=== PATIENT | female | born 1980 | race Caucasian/White ===

== ENCOUNTER → 2018-03-26 13:53 | Outpatient (CLI) | payer OTHER, SELFPAY ==
[2018-03-26 14:44] LABS: Add Manual Diff / Slide Review NO; Basophils Percent Auto 0.7 % (0-2); Eosinophils Percent Auto 0.6 % (2-4); Hematocrit 38.2 % (36-46); Hemoglobin 12.9 g/dL (12.0-16.0); Lymphocytes Percent Auto 14.7 % (25-40); Mean Corpuscular HGB Conc 33.7 % (30-36); Mean Corpuscular Hemoglobin 29.6 PG (26-34); Mean Corpuscular Volume 87.7 fL (80-100); Neutrophils Absolute Auto 7700 /uL (3000-5900); Platelet Count 470 X10^3/uL (150-400); Red Blood Cell Count 4.35 X10^6/uL (4.0-5.2); Red Cell Distribution Width 17.3 % (11.6-14.8)
[2018-03-26 14:50] LABS: Appearance Urine UA CLEAR; Bilirubin Urine UA NEGATIVE (NEGATIVE); Color Urine UA YELLOW; Glucose Urine UA NEGATIVE (Normal); Ketones Urine UA NEGATIVE (NEGATIVE); Leukocyte Esterase Urine UA NEGATIVE (NEGATIVE); Nitrite Urine UA NEGATIVE (NEGATIVE); Occult Blood Urine UA NEGATIVE (Negative); Protein Urine UA NEGATIVE (Negative); Specific Gravity Urine UA 1.025 (1.000-1.035); Urobilinogen Urine UA 0.2 E.U./dL (0.2)
[2018-03-26 15:09] LABS: Bacteria Urine None Seen; RBC Urine 0-1/HPF (0-5/HPF); Squamous Epithelial Cell Urine 1-5 /HPF; WBC Urine 0-1/HPF (0-5/HPF)
[2018-03-26 19:03] LABS: HIV 1 and 2 Antibody NEGATIVE (NEGATIVE); Hep C Virus Ab w/Reflex Quant NEGATIVE s/c (NEGATIVE); Hepatitis B Surface Antigen NEGATIVE s/c (NEGATIVE)
[2018-03-28 14:27] LABS: HSV 2 IGG AB < 0.90 index (< 0.90); HSV1IGG < 0.90 index (< 0.90)
[2018-03-29 12:49] LABS: Rapid Plasma Reagin NON-REACTIVE
== END ==
PROVIDERS: Visit Provider Family Medicine
DX: Z34.01 Encounter for supervision of normal first pregnancy, first trimester (principal); Z3A.01 Less than 8 weeks gestation of pregnancy
CPT/HCPCS: 36415; 80055; 86850; 86900; 86901; 87086

== ENCOUNTER → 2018-03-27 | Outpatient (CLI) | payer OTHER, SELFPAY | LOC: LAB 09:56 | PROVIDERS: Visit Provider Family Medicine | DX: Z34.90 Encounter for supervision of normal pregnancy, unspecified, unspecified trimester (principal) | CPT/HCPCS: 86787 ==

== ENCOUNTER → 2018-04-09 16:09 | Outpatient (CLI) | payer OTHER, SELFPAY ==
[2018-04-09 22:11] LABS: Urine N gonorrhoeae NOT DETECTED
[2018-04-09 22:13] LABS: Urine Chlamydia NOT DETECTED
== END ==
PROVIDERS: Visit Provider Family Medicine
DX: Z11.3 Encounter for screening for infections with a predominantly sexual mode of transmission (principal); Z11.8 Encounter for screening for other infectious and parasitic diseases
CPT/HCPCS: 87491; 87591

== ENCOUNTER → 2018-05-21 12:50 | Outpatient (CLI) | payer OTHER, SELFPAY ==
[2018-06-04 08:43] LABS: Informaseq SEE SEPARATE REPORTS
== END ==
PROVIDERS: Visit Provider Family Medicine
DX: O09.511 Supervision of elderly primigravida, first trimester (principal); Z3A.12 12 weeks gestation of pregnancy
CPT/HCPCS: 36415; 81507

== ENCOUNTER → 2018-07-20 07:10 | Outpatient (CLI) | payer OTHER, SELFPAY ==
--- NOTE | 2018-07-20 07:36 | DI.US.S_ITS ---
PROCEDURE: US OB >= 14 WEEKS FETUS INDICATIONS: ANATOMIC SURVEY OUTSIDE/PRIOR DATING DATA: Last menstrual period (LMP): Unknown. LMP-based estimated date of delivery (SHANELLE): N./A.. First dating scan (date and location): 07/20/18. Estimated date of delivery (SHANELLE) from first dating scan: 11/27/18. TECHNIQUE: Real-time scanning was performed of the fetus, with image documentation and biometric measurements. Endovaginal scanning: No COMPARISON: [facility], , OB >= 14 WEEKS FETUS, 04/23/2018, 10:23. FINDINGS: General: A single living intrauterine gestation is present. Presentation: Transverse. Placenta: Placental position is anterior, which is low lying with the inferior margin 1.0 cm above the internal cervical os.. Amniotic fluid index: 12.1 cm, normal range is 5-24 cm. heart rate: 141 beats per minute. Maternal cervical canal: 3.5 cm long. Normal lower limit is 2.5 cm. biometrics: Biparietal diameter: 20 weeks 3 days Head circumference: 21 weeks 3 days Abdominal circumference: 22 weeks 2 days Femur length: 21 weeks 3 days Estimated gestational age from initial scan: not applicable. Composite gestational age from present scan: 21 weeks 3 days Estimated weight and percentile: 50 g Measurement variability for biometric dating: +/- 7 days from 14 weeks to 15 weeks 6 days gestation, +/- 10 days from 16 weeks to 21 weeks 6 days gestation, +/- 2 weeks from 22 weeks to 27 weeks 6 days gestation, +/- 3 weeks for 28 weeks gestation or later. weight reference: 4500 g or EFW >90/95% is considered macrosomia or large for gestational age. EFW <10% is small for gestational age. EFW 5% or less is considered intra-uterine growth restriction. Anatomic survey: Neuro: Ventricles are non-dilated at less than 10 mm. Cisterna magna is normal at 3-11 mm. Cerebellum is normal in size and morphology. Nuchal skin fold: Normal at less than 6 mm between 14-21 weeks gestational age. Face: Nose and lips, facial profile are normal. Spine: No evidence for spina bifida. Heart: 4-chambered heart is present, with normal ventricular outflow tracts. Diaphragm: Diaphragm is intact. Stomach: Left-sided stomach is present. Kidneys: No hydronephrosis. Normal is less than 5 mm in 2nd trimester, less than 7 mm in 3rd trimester. Cord: 3-vessel cord has orthotopic insertion. Bladder: Normal in size. Extremities: All 4 extremities identified. IMPRESSION: 1. Single living IUP with composite gestational age of 21 weeks 3 days. 2. Normal anatomy. 3. Low lying placenta. Followup recommended. Dictated by: Jay Sumner [facility] Interpreted: Jonny Rae MD on 07/20/2018 at 9:19 Approved by: Jonny Rae M.D. on 07/20/2018 at 13:57
[2018-07-20 08:36] LABS: Add Manual Diff / Slide Review NO; Basophils Percent Auto 1.3 % (0-2); Eosinophils Percent Auto 1.2 % (2-4); Hematocrit 35.8 % (36-46); Hemoglobin 12.1 g/dL (12.0-16.0); Lymphocytes Percent Auto 15.2 % (25-40); Mean Corpuscular HGB Conc 33.7 % (30-36); Mean Corpuscular Hemoglobin 29.4 PG (26-34); Mean Corpuscular Volume 87.1 fL (80-100); Monocytes Percent Auto 4.2 % (3-14); Neutrophils Absolute Auto 8300 /uL (3000-5900); Neutrophils Percent Auto 78.1 % (50-75); Platelet Count 352 X10^3/uL (150-400); Red Cell Distribution Width 17.6 % (11.6-14.8); White Blood Cell Count 10.7 X10^3/uL (4.5-11.0)
[2018-07-20 08:57] LABS: Erythrocyte Sedimentation Rate 59 MM/HR (0-20)
[2018-07-20 09:12] LABS: Alanine Aminotransferase 8 IU/L (9-52); Albumin 3.6 g/dL (3.5-5.0); Alkaline Phosphatase 63 U/L (38-126); Aspartate Aminotransferase 13 IU/L (14-36); BUN Creatinine Ratio 22.5 (6-22); Bilirubin Total 0.3 mg/dL (0.2-1.3); Blood Urea Nitrogen 9 mg/dL (7-17); C-Reactive Protein Quant 1.2 mg/dL (<1.0); Calcium 8.9 mg/dL (8.4-10.2); Carbon Dioxide 23 mmol/L (22-32); Chloride 108 mmol/L (98-107); Estimated Glomerular Filt Rate > 60.0 mL/min (>60); Globulin 3.7 g/dL (1.7-4.1); Glucose 87 mg/dL (70-100); HEMOLYSIS < 15 (0-50); Potassium 4.1 mmol/L (3.4-5.1); Sodium 139 mmol/L (137-145); Total Protein 7.3 g/dL (6.3-8.2)
== END ==
PROVIDERS: Family Provider Internal Medicine Rheumatology; PCP Family Medicine; Visit Provider Family Medicine
DX: O99.89 Other specified diseases and conditions complicating pregnancy, childbirth and the puerperium (principal); M45.9 Ankylosing spondylitis of unspecified sites in spine; Z3A.21 21 weeks gestation of pregnancy
CPT/HCPCS: 36415; 76811; 80053; 85025; 85651; 86140

== ENCOUNTER → 2018-08-16 16:10 | Outpatient (CLI) | payer OTHER, SELFPAY ==
[2018-08-16 18:01] LABS: Hematocrit 36.6 % (36-46); Hemoglobin 12.1 g/dL (12.0-16.0)
[2018-08-16 18:10] LABS: GTT (PREG) 1 Hour PP 50gm Dose 109 mg/dL (76-139)
== END ==
PROVIDERS: Family Provider Internal Medicine Rheumatology; PCP Family Medicine; Visit Provider Family Medicine
DX: Z34.82 Encounter for supervision of other normal pregnancy, second trimester (principal); Z3A.26 26 weeks gestation of pregnancy
CPT/HCPCS: 36415; 82950; 85014; 85018

== ENCOUNTER 2018-10-04 10:25 | Outpatient (CLI) | payer OTHER, SELFPAY | END 2018-10-04 11:22 | disposition home or self-care (01) | LOC: LABOR 10:36 → OB 10-09 08:49 | PROVIDERS: PCP Family Medicine; Visit Provider Family Medicine | DX: Z34.83 Encounter for supervision of other normal pregnancy, third trimester (principal); Z3A.32 32 weeks gestation of pregnancy | CPT/HCPCS: 59025; G0378; G0379 ==

== ENCOUNTER 2018-10-11 08:35 | Outpatient (CLI) | payer OTHER, SELFPAY ==
[2018-10-11] MEDS: CALCIUM CARBONATE 500 MG TAB 1000 MG PO (09:01)
== END 2018-10-11 09:32 | disposition home or self-care (01) ==
LOC: OB 13:17
PROVIDERS: Family Provider Internal Medicine Rheumatology; PCP Family Medicine; Visit Provider Family Medicine
DX: Z34.83 Encounter for supervision of other normal pregnancy, third trimester (principal); Z3A.33 33 weeks gestation of pregnancy
CPT/HCPCS: 59025; G0378; G0379

== ENCOUNTER 2018-10-19 08:35 | Outpatient (CLI) | payer OTHER, SELFPAY | END 2018-10-19 09:31 | disposition home or self-care (01) | LOC: LABOR 08:39 → OB 10-22 14:01 | PROVIDERS: PCP Family Medicine; Visit Provider Family Medicine | DX: Z34.83 Encounter for supervision of other normal pregnancy, third trimester (principal); Z3A.34 34 weeks gestation of pregnancy | CPT/HCPCS: 59025; 87653; G0378; G0379 ==

== ENCOUNTER → 2018-10-19 10:04 | Outpatient (CLI) | payer OTHER, SELFPAY ==
[2018-10-20 13:05] LABS: Strep Grp B PCR NEG for Grp B Strep
== END ==
PROVIDERS: Family Provider Internal Medicine Rheumatology; PCP Family Medicine; Visit Provider Family Medicine
DX: Z34.90 Encounter for supervision of normal pregnancy, unspecified, unspecified trimester (principal)
CPT/HCPCS: 87653

== ENCOUNTER 2018-10-24 08:34 | Outpatient (CLI) | payer OTHER, SELFPAY | END 2018-10-24 09:12 | disposition home or self-care (01) | LOC: OB 10-25 11:06 | PROVIDERS: Family Provider Internal Medicine Rheumatology; PCP Family Medicine; Visit Provider Family Medicine | DX: Z34.83 Encounter for supervision of other normal pregnancy, third trimester (principal); Z3A.36 36 weeks gestation of pregnancy | CPT/HCPCS: 59025; G0378; G0379 ==

== ENCOUNTER 2018-10-31 11:30 | Outpatient (CLI) | payer OTHER, SELFPAY ==
--- NOTE | 2018-10-31 12:18 | PM.OBTRLD ---
Visit Information Visit Information Date of evaluation: 10/31/18 Primary OB Provider: Janusz Santamaria On-call OB Provider: Candi Flowers Reason for Evaluation: Yes non-stress test Comments/Additional reasons for admission: Patient with Crohn's disease, ankylosing spondylitis, at 36 weeks Evaluation Evaluation Baseline heart rate: 120 Variability: Moderate (11-25) monitor accelerations: Present monitor decelerations: Absent Diagnosis, Plan/Disposition Final Diagnosis (1) 36 weeks gestation of : Current Visit: Yes Status: Acute (2) H/O Crohn's disease: Current Visit: No Status: Chronic Plan/Disposition Plan: Reactive nonstress test keep her routine OB appointment.
== END 2018-10-31 12:22 | disposition home or self-care (01) ==
LOC: LABOR 11:45 → OB 11-07 08:34
PROVIDERS: Family Provider Internal Medicine Rheumatology; PCP Family Medicine; Visit Provider Family Medicine
DX: Z34.03 Encounter for supervision of normal first pregnancy, third trimester (principal); Z3A.36 36 weeks gestation of pregnancy
CPT/HCPCS: 59025; G0378; G0379

== ENCOUNTER 2018-11-09 08:54 | Outpatient (CLI) | payer OTHER, SELFPAY | END 2018-11-09 09:41 | disposition home or self-care (01) | LOC: LABOR 09:29 → OB 11:28 | PROVIDERS: PCP Family Medicine; Visit Provider Family Medicine | DX: Z34.03 Encounter for supervision of normal first pregnancy, third trimester (principal); Z3A.37 37 weeks gestation of pregnancy | CPT/HCPCS: 59025; G0378; G0379 ==

== ENCOUNTER 2018-11-12 21:54 | Inpatient (IN) | payer OTHER, SELFPAY ==
[2018-11-12 22:24] VITALS: BP 122/79
[2018-11-12] MEDS: LACTATED RINGERS 1,000 ML 100 ML IV (23:00)
--- NOTE | 2018-11-12 23:08 | P.HP_ITS ---
History of Present Illness Date Patient Seen: 11/12/18 Time Patient Seen: 23:00 Chief complaint: Narrative: Patient is a G2 para 1 at 38 weeks gestational age with an estimated due date of November 27, 2018 consistent with initial examination and early ultrasound. The patient states this evening she was sitting on the couch with her partner. She also and felt leaking of fluid. He thought she had an accident went to the bathroom and the fluid kept leaking. At that point she knew her water broke. She lives on [facility] they were able to get the [place] over and they proceeded to the labor and delivery floor. On arrival to the labor and delivery for she was kath every 2-3 minutes. She was found to be grossly ruptured. heart tones of the baby were 140. Which were reactive. She was dilated to 2 cm. Over the last 48 hr patient states she was feeling well without any difficulties. She has had no fevers no chills no headache. Patient states she has had good movement. Patient is history she began care at 6 weeks and had routine follow-up. She had a total weight gain of approximately 30 lb. She has a health history consistent with Crohn's disease ankylosing spondylitis she is a smoker and uses marijuana and has anxiety. Her medications include vitamins Flexeril hydroxyzine and symptoms for treatment of her ankylosing spondylitis and Crohn's disease which were both quiescent during the . During the last 6 weeks of she had weekly NSTs and doctor's appointments. Baby had good growth during the . labs show blood type AB-positive antibody screen negative hemoglobin 38.2 and 12.9 platelet count 470 VDRL nonreactive urine culture negative hepatitis B surface antigen negative HIV negative chlamydia negative gonorrhea negative rubella immune hepatitis C negative HSV 1 and HSV 2-varicella immune genetic screen test was negative. Diabetes screen was 109. GBS test was negative. Past medical history includes allergies to latex and blue cheese history of migraine headaches Crohn's disease urinary tract infection ankle closing spondylitis. Past surgical history hemorrhoidectomy. Past infectious gynecological history history of chlamydia previously treated. She also smokes marijuana and CBD. Used alcohol in the beginning the until she found out she was . Meds Home Medications Medication Instructions Recorded Confirmed Type etanercept 50 mg/mL (0.98 mL) 50 mg SUBCUT QWEEK 03/26/18 03/26/18 History subcutaneous syringe cyclobenzaprine 10 mg tablet 10 mg PO TID PRN #30 tab 04/23/18 Rx clotrimazole 2 % vaginal cream 1 applicator VAG BEDTIME #21 gram 05/21/18 Rx hydroxyzine HCl 25 mg tablet 25 mg PO Q8H PRN #30 tab 05/21/18 Rx Allergies Allergy/AdvReac Type Severity Reaction Status Date / Time No Known Drug Allergies Allergy Unverified 03/26/18 13:22 Exam Narrative Exam Narrative: . General: Alert no apparent distress. Affect is appropriate. Kath it is uncomfortable. HEENT: Neck is supple without lymphadenopathy pupils equal round and reactive. Cardio: S1-S2 regular rate and rhythm. Respiratory: Lungs clear to auscultation. Abdomen: Gravid. Extremities: Normal deep tendon reflexes trace edema. [place]: Kath every 3-5 minutes 60-90 2nd contraction heart tones: heart tone category 1 average heart rate 135 Assessment & Plan Plan: Assessment/Plan Narrative: 37-year-old G2 para 0 at 38 weeks gestational age with spontaneous rupture of membrane with active labor. heart tracings were category 1. is complicated by Crohn's disease which is not active ankylosing spondylitis cigarette smoking and CBD use. Patient from the beginning of his desired due to her ankylosing spondylitis and chronic pain in her back due to this. She presents in labor and ruptured. Would like to proceed with a . procedure was discussed with her and her partner. Risk benefits and alternative 2 C sections surgery were discussed with patient in partner. Written informed and verbal consent were obtained for the C- section. Preoperative orders were written for patient will have a CBC and platelet count blood type she will be given antibiotics on-call to the OR step OT 10 2 g IV. She will meet with anesthesia. And we will go ahead and proceed with a operation as patient has requested.
[2018-11-12 23:13] LABS: Add Manual Diff / Slide Review NO; Basophils Percent Auto 0.5 % (0-2); Eosinophils Percent Auto 0.7 % (2-4); Hematocrit 39.9 % (36-46); Hemoglobin 13.8 g/dL (12.0-16.0); Lymphocytes Percent Auto 15.1 % (25-40); Mean Corpuscular HGB Conc 34.5 % (30-36); Mean Corpuscular Hemoglobin 30.8 PG (26-34); Mean Corpuscular Volume 89.3 fL (80-100); Monocytes Percent Auto 3.7 % (3-14); Neutrophils Absolute Auto 9800 /uL (1500-7000); Platelet Count 375 X10^3/uL (150-400); Red Blood Cell Count 4.47 X10^6/uL (4.0-5.2); Red Cell Distribution Width 15.6 % (11.6-14.8); White Blood Cell Count 12.3 X10^3/uL (4.5-11.0)
[2018-11-12] MEDS: CEFOTETAN 2 GM/50 ML PIGGYBACK IV (23:25)
[2018-11-13] VITALS (7 sets, daily range): BP systolic 130–134; BP diastolic 88–95; PULSE 94–102; RESP 9–17; TEMP 36.8–37.1; O2SAT 93–94
--- NOTE | 2018-11-13 00:07 | SUR.OPER ---
Supine on Padded OR bed, head on pillow, safety belt at thigh, arms secured on padded arm boards at <90 degrees abduction. Bump under right buttock. Legs uncrossed with pillow under knees, gel pad to heels, tape over blanket to lower legs.
[2018-11-13] MEDS: LACTATED RINGERS 1,000 ML 100 ML IV (00:19)
[2018-11-13] MEDS: ACETAMINOPHEN IV 1,000 MG/100 ML VIAL 400 MG IV (00:22)
--- NOTE | 2018-11-13 00:36 | P.OP_ITS ---
Operative Date/Time/Diagnoses Date of procedure: 11/13/18 Time of procedure: 00:32 Procedure & Clinicians Procedure: Procedure: Lower segment transverse section Consent: Verbal and written informed consent were obtained from the patient placed on the chart. Indications: 37-year-old G2 para 1 at 38 weeks with spontaneous rupture of membranes desiring Findings: [Normal uterus normal ovaries] Normal female infant Apgars 8 and 9 Anesthesia: General after failed spinal due to ankylosing spondylitis Surgeon: [Dr. Janusz Santamaria] Radiation Control Specialist: [Dr. Bryan Underwood] Estimated blood loss: [500 mL] Drains: Maciel to gravity. IV fluids: 2 L lactated Ringer's Description of procedure: The patient was brought to the operating room patient had multiple temps at spinal anesthesia but due to patient's ankylosing spondylitis patient require general anesthesia. After preparation, and Maciel had been performed. The abdomen was prepped a lower abdominal Pfannenstiel incision was made with first with a knife and cared down to the fascia with a second knife. The fascia was incised in the midline and extended laterally with a knife. Bleeding points were clamped with hemostats and Bovie coagulated. The rectus muscles were by blunt dissection. The rectus muscles were divided in the midline and the peritoneum was grasped with hemostats and carefully entered with Cherry scissors. The incision was extended bilaterally. The bladder blade was then placed. The vesicoperitoneum was grasped with smooth pickups, entered with Metzenbaum scissors, and extended laterally. The bladder flap was created by gently blunt dissection and placed behind the bladder blade. The lower uterine segment was noted to be thin was carefully incised with the scalpel and extended laterally with the fingers. A live was found to be in the vertex position. The head was then easily elevated with the hand. The baby was then suctioned and cried immediately, and was handed to the waiting attendant. The placenta was delivered manually. The uterus was explored with a wet lap sponge and found to be clear membranes. The first layer of the uterine closure was with running locking #1 chromic catgut suture. The second layer with an imbricating #1 chromic catgut suture. Hemostasis was carefully checked and found to be satisfactory. The bladder flap was closed with a running 2-0 chromic catgut suture. The fallopian tubes and ovaries were inspected and to be found normal bilaterally. After sponge and needle counts were found to be correct the peritoneum was closed with 2-0 chromic catgut suture. Rectus muscles were approximated in the midline. The fascia was closed with a 2 running 0 Vicryl from lateral to midline. The subcutaneous tissue was approximated with interrupted 2.0 plain gut. Bleeding points were Bovie and coagulated. The skin was closed with 1-0 running subcuticular stitch. Urinary output was adequate and normal patient left to the recovery room in good condition.
--- NOTE | 2018-11-13 00:36 | SUR.OPER ---
VIABLE FEMALE INFANT DELIVERED AT 2356. PLACENTA AND CORD BLOOD TO OB WITH RN
[2018-11-13] MEDS: HYDROMORPHONE 2 MG INJ 0.5 MG IV ×2 (00:46→00:51)
[2018-11-13] MEDS: HYDROMORPHONE 2 MG INJ 1 MG IV (01:02)
--- NOTE | 2018-11-13 01:10 | SUR.PHASEI ---
Report given to Marielena
--- NOTE | 2018-11-13 01:26 | SUR.PHASEI ---
Pt intermittently teary, c/o anxiety, pt reassured easily. Expressed desire to see daughter. Pt transferred to the center. VS checked. IV saline locked. Two small spots of shadow drainage to sesar kwon. Fundus and perineum checked with RN. Report given to Marielena.
[2018-11-13] MEDS: LACTATED RINGERS 1,000 ML 125 ML IV (01:52)
[2018-11-13] MEDS: HYDROMORPHONE PCA 6 MG/30 ML PCA.VIAL IV (02:30)
--- NOTE | 2018-11-13 07:32 | PM.PN.1 ---
Subjective Date Patient Seen: 11/13/18 Time Patient Seen: 07:51 Interval history: Patient seen and evaluated postoperative day 1. For primary due to medical complication during of ankylosing spondylitis and Crohn's disease. Patient had general anesthesia during the due to inability to obtain spinal anesthesia due to ankylosing spondylitis of the spine. Patient had a good night last night. Her vital signs have been stable. She is receiving SPECIAL NEEDS NANNY for pain medication she has still has a Maciel catheter in and SCDs on. She states she is anticipating eating today and getting up and moving. Patient has a history of anxiety and required a little bit of Vistaril for anxiousness. Exam Vital Signs (past 8 hours): - 11/13/18 00:38 11/13/18 00:43 11/13/18 00:48 Temperature 98.2 F Pulse Rate 102 H 94 H 97 H Respiratory Rate 16 9 L 17 Blood Pressure 130/95 H 133/92 H 134/88 Pulse Oximetry 93 94 93 11/13/18 00:53 11/13/18 01:03 11/13/18 02:30 Temperature 98.4 F Pulse Rate 99 H 95 H Respiratory Rate 16 12 Blood Pressure 134/91 H 131/88 Pulse Oximetry 93 94 Oxygen Delivery Method Room Air Narrative Exam Narrative: General: Alert no apparent distress. Affect is appropriate. Maria Teresa it is uncomfortable. HEENT: Neck is supple without lymphadenopathy pupils equal round and reactive. Cardio: S1-S2 regular rate and rhythm. Respiratory: Lungs clear to auscultation. Abdomen: Uterus firm. Incision clean dry and intact. Extremities: Normal deep tendon reflexes trace edema. Objective Labs Result Diagrams: 11/12/18 22:30 Labs: Laboratory Results - last 24 hr 11/12/18 11/12/18 22:30 22:30 WBC 12.3 H RBC 4.47 Hgb 13.8 Hct 39.9 MCV 89.3 MCH 30.8 MCHC 34.5 RDW 15.6 H Plt Count 375 Neut % (Auto) 80.0 H Lymph % (Auto) 15.1 L [place] % (Auto) 3.7 Eos % (Auto) 0.7 L Baso % (Auto) 0.5 Neut # (Auto) 9800 H Blood Type AB Positive Antibody Screen Negative Assessment & Plan Plan: Assessment/Plan Narrative: Postop day 1. Primary elective due to medical reasons during due to chronic back pain from ankylosing spondylitis Crohn's disease. Mom's doing well this morning. Will re-evaluate her hemoglobin and hematocrit. Later today as her pain is better controlled we will convert her from a SPECIAL NEEDS NANNY to oral pain medication. Her Maciel catheter will be DC. She will get up and eat a regular diet. Will work on ambulation to the bathroom. Mild anxiety after the . Continue with Vistaril as needed. May consider transferring to a long-term SSRI during the period. Wants a ParaGard IUD for prevention
--- NOTE | 2018-11-13 07:35 | P.PN_ITS ---
Subjective Date Patient Seen: 11/13/18 Time Patient Seen: 07:51 Interval history: Patient seen and evaluated postoperative day 1. For C- section primary due to medical complication during of ankylosing spondylitis and Crohn's disease. Patient had general anesthesia during the C- section due to inability to obtain spinal anesthesia due to ankylosing spondylitis of the spine. Patient had a good night last night. Her vital signs have been stable. She is receiving [facility] [employer] [facility] [facility] for pain medication she has still has a Maciel catheter in and SCDs on. She states she is anticipating eating today and getting up and moving. Patient has a history of anxiety and required a little bit of Vistaril for anxiousness. Exam Vital Signs (past 8 hours): - 11/13/18 00:38 11/13/18 00:43 11/13/18 00:48 Temperature 98.2 F Pulse Rate 102 H 94 H 97 H Respiratory Rate 16 9 L 17 Blood Pressure 130/95 H 133/92 H 134/88 Pulse Oximetry 93 94 93 11/13/18 00:53 11/13/18 01:03 11/13/18 02:30 Temperature 98.4 F Pulse Rate 99 H 95 H Respiratory Rate 16 12 Blood Pressure 134/91 H 131/88 Pulse Oximetry 93 94 Oxygen Delivery Method Room Air Narrative Exam Narrative: General: Alert no apparent distress. Affect is appropriate. Maria Teresa it is uncomfortable. HEENT: Neck is supple without lymphadenopathy pupils equal round and reactive. Cardio: S1-S2 regular rate and rhythm. Respiratory: Lungs clear to auscultation. Abdomen: Uterus firm. Incision clean dry and intact. Extremities: Normal deep tendon reflexes trace edema. Objective Labs Result Diagrams: 11/12/18 22:30 Labs: Laboratory Results - last 24 hr 11/12/18 11/12/18 22:30 22:30 WBC 12.3 H RBC 4.47 Hgb 13.8 Hct 39.9 MCV 89.3 MCH 30.8 MCHC 34.5 RDW 15.6 H Plt Count 375 Neut % (Auto) 80.0 H Lymph % (Auto) 15.1 L [place] % (Auto) 3.7 Eos % (Auto) 0.7 L Baso % (Auto) 0.5 Neut # (Auto) 9800 H Blood Type AB Positive Antibody Screen Negative Assessment & Plan Plan: Assessment/Plan Narrative: Postop day 1. Primary elective due to medical reasons during due to chronic back pain from ankylosing spondylitis Crohn's disease. Mom's doing well this morning. Will re-evaluate her hemoglobin and hematocrit. Later today as her pain is better controlled we will convert her from a [facility] [employer] [facility] [facility] to oral pain medication. Her Maciel catheter will be DC. She will get up and eat a regular diet. Will work on ambulation to the bathroom. Mild anxiety after the . Continue with Vistaril as needed. May consider transferring to a long-term SSRI during the period. Wants a ParaGard IUD for prevention
[2018-11-13] MEDS: NICOTINE 7 MG PATCH TOP (07:41)
[2018-11-13] MEDS: KETOROLAC 30 MG/ML VIAL IV ×3 (08:43→21:34)
[2018-11-13] MEDS: OXYCODONE/ACETAMINOPHEN 5/325 TABLET 2 TAB PO ×2 (09:09→13:11)
[2018-11-13] MEDS: OXYCODONE/ACETAMINOPHEN 5/325 TABLET 1 TAB PO (21:43)
[2018-11-14] MEDS: OXYCODONE/ACETAMINOPHEN 5/325 TABLET 1 TAB PO ×4 (02:08→17:01)
[2018-11-14] MEDS: LANOLIN OINT 7 GM 1 APPLIC TOP (02:09)
[2018-11-14] MEDS: IBUPROFEN 600 MG TABLET PO ×4 (04:18→23:31)
--- NOTE | 2018-11-14 07:38 | PM.PN.1 ---
Subjective Date Patient Seen: 11/14/18 Time Patient Seen: 07:38 Interval history: Patient seen had a good day yesterday. Maciel was removed SCDs removed IV fluid was stopped. She is on oral pain medication. Tolerating her diet well. Ambulating with a little bit of assistance. Hemoglobin and hematocrit is pending this morning. No difficulty with urination. No bowel movement. Bleeding has been as anticipated. No significant lower extremity edema. Vital signs are stable. Temperature is stable. Incision is clean and dry. Exam Vital Signs (past 8 hours): Oxygen Delivery Method Room Air Narrative Exam Narrative: General: Alert no apparent distress. Affect is appropriate. Maria Teresa it is uncomfortable. HEENT: Neck is supple without lymphadenopathy pupils equal round and reactive. Cardio: S1-S2 regular rate and rhythm. Respiratory: Lungs clear to auscultation. Abdomen: Uterus firm. Incision clean dry and intact. Extremities: Normal deep tendon reflexes trace edema. Objective Labs Result Diagrams: 11/12/18 22:30 Assessment & Plan Plan: Assessment/Plan Narrative: day 2. They want to stay 1 more day which I think is reasonable. Check hemoglobin hematocrit today. Continue with breast-feeding. Advancing diet. Ambulation work on breast-feeding. Smoker and . Reviewed medication. It is okay for the patch it is okay for Wellbutrin not for sure intact and will talk to her about this. Her Complicated medical history with Crohn's disease and ankylosing spondylitis and is stable she is on immune suppressants.
[2018-11-14] MEDS: NICOTINE 7 MG PATCH TOP (08:49)
[2018-11-14 09:08] LABS: Add Manual Diff / Slide Review NO; Basophils Percent Auto 0.3 % (0-2); Eosinophils Percent Auto 0.4 % (2-4); Hematocrit 31.6 % (36-46); Hemoglobin 10.7 g/dL (12.0-16.0); Lymphocytes Percent Auto 15.2 % (25-40); Mean Corpuscular HGB Conc 33.8 % (30-36); Mean Corpuscular Hemoglobin 30.9 PG (26-34); Mean Corpuscular Volume 91.4 fL (80-100); Monocytes Percent Auto 4.8 % (3-14); Neutrophils Absolute Auto 8500 /uL (1500-7000); Neutrophils Percent Auto 79.3 % (50-75); Platelet Count 304 X10^3/uL (150-400); Red Blood Cell Count 3.46 X10^6/uL (4.0-5.2); Red Cell Distribution Width 15.8 % (11.6-14.8); White Blood Cell Count 10.7 X10^3/uL (4.5-11.0)
[2018-11-14] MEDS: OXYCODONE/ACETAMINOPHEN 5/325 TABLET 2 TAB PO (21:02)
--- NOTE | 2018-11-15 06:17 | PM.DS.1 ---
History of Present Illness Chief complaint: labor & delivery Narrative: Patient is a G2 para 1 at 38 weeks gestational age with an estimated due date of November 27, 2018 consistent with initial examination and early ultrasound. The patient states this evening she was sitting on the couch with her partner. She also and felt leaking of fluid. He thought she had an accident went to the bathroom and the fluid kept leaking. At that point she knew her water broke. She lives on [facility] they were able to get the [place] over and they proceeded to the labor and delivery floor. On arrival to the labor and delivery for she was kath every 2-3 minutes. She was found to be grossly ruptured. heart tones of the baby were 140. Which were reactive. She was dilated to 2 cm. Over the last 48 hr patient states she was feeling well without any difficulties. She has had no fevers no chills no headache. Patient states she has had good movement. Patient is history she began care at 6 weeks and had routine follow-up. She had a total weight gain of approximately 30 lb. She has a health history consistent with Crohn's disease ankylosing spondylitis she is a smoker and uses marijuana and has anxiety. Her medications include vitamins Flexeril hydroxyzine and symptoms for treatment of her ankylosing spondylitis and Crohn's disease which were both quiescent during the . During the last 6 weeks of she had weekly NSTs and doctor's appointments. Baby had good growth during the . labs show blood type AB-positive antibody screen negative hemoglobin 38.2 and 12.9 platelet count 470 VDRL nonreactive urine culture negative hepatitis B surface antigen negative HIV negative chlamydia negative gonorrhea negative rubella immune hepatitis C negative HSV 1 and HSV 2-varicella immune genetic screen test was negative. Diabetes screen was 109. GBS test was negative. Past medical history includes allergies to latex and blue cheese history of migraine headaches Crohn's disease urinary tract infection ankle closing spondylitis. Past surgical history hemorrhoidectomy. Past infectious gynecological history history of chlamydia previously treated. She also smokes marijuana and CBD. Used alcohol in the beginning the until she found out she was . Discharge Providers Date of admission: 11/12/18 21:54 Primary care physician: Janusz Santamaria MD Consults: 11/13/18 00:28 Consult to [employer] Spr[employer] Supervisor Routine Comment: Discharge provider: Janusz Santamaria MD Discharge Date: 11/15/18 Summary Discharge Diagnosis: 37-year-old G2 para 1 at 38 weeks gestational age with delivery of viable female via Routine postoperative care Crohn's disease Ankylosing spondylitis Smoker Exam Vital Signs (past 8 hours): Oxygen Delivery Method Room Air Narrative Exam Narrative: General: Alert no apparent distress. Affect is appropriate. Kath it is uncomfortable. HEENT: Neck is supple without lymphadenopathy pupils equal round and reactive. Cardio: S1-S2 regular rate and rhythm. Respiratory: Lungs clear to auscultation. Abdomen: Uterus firm. Incision clean dry and intact. Extremities: Normal deep tendon reflexes trace edema. Objective Labs Result Diagrams: 11/14/18 08:15 Labs: Laboratory Results - last 24 hr 11/14/18 08:15 WBC 10.7 RBC 3.46 L Hgb 10.7 L Hct 31.6 L MCV 91.4 MCH 30.9 MCHC 33.8 RDW 15.8 H Plt Count 304 Neut % (Auto) 79.3 H Lymph % (Auto) 15.2 L [place] % (Auto) 4.8 Eos % (Auto) 0.4 L Baso % (Auto) 0.3 Neut # (Auto) 8500 H Discharge Plan Discharge Plan Patient Disposition: Home Discharge Med Rec/Prescriptions Prescriptions: New oxycodone-acetaminophen 5-325 mg Tablet 2 tab PO 3-4XD PRN (Reason: pain) Qty: 40 RF: 0 docusate sodium 250 mg Capsule 250 mg PO DAILY PRN (Reason: const) Qty: 0 RF: 0 ibuprofen 600 mg Tablet 600 mg PO Q6HR PRN (Reason: As Needed For Fever/Mild Pain) Qty: 0 RF: 0 nicotine 7 mg/24 hr Patch 24 Hour 7 mg Topical DAILY Qty: 0 RF: 0 Continue certolizumab pegol [Cimzia] 400 mg/2 mL (200 mg/mL x 2) Syringe Kit 400 mg SUBCUT Q4W RF: 0 1 tab tablet 1 tab PO DAILY RF: 0 Follow up/Referrals: Janusz Santamaria MD [Primary Care Provider] - 3-5 Days (November 19, Monday, with Dr. Santamaria at 8:45am) Discharge Data Primary Care Provider: Janusz Santamaria Attending Provider: Janusz Santamaria Admit Date/Time: 11/12/18 21:54
[2018-11-15] MEDS: OXYCODONE/ACETAMINOPHEN 5/325 TABLET 2 TAB PO (06:54)
[2018-11-15] MEDS: IBUPROFEN 600 MG TABLET PO (06:55)
[2018-11-15 07:14] VITALS: BP 131/88; PULSE 95; RESP 12; TEMP 37.1
[2018-11-15 07:50] VITALS: BP 124/80; PULSE 85; RESP 16; TEMP 36.8
== END 2018-11-15 10:40 | disposition home or self-care (01) | DRG 788 ==
PROVIDERS: Admitting Provider Family Medicine; Family Provider Internal Medicine Rheumatology; PCP Family Medicine; Visit Provider Family Medicine
PROC: 10D00Z1 Extraction of Products of Conception, Low, Open Approach (ICD-10-PCS; CPT 59514; principal; 2018-11-12 23:55)
DX: O75.82 Onset (spontaneous) of labor after 37 completed weeks of gestation but before 39 completed weeks gestation, with delivery by (planned) cesarean section (principal); O99.334 Smoking (tobacco) complicating childbirth; F17.210 Nicotine dependence, cigarettes, uncomplicated; Z3A.38 38 weeks gestation of pregnancy; Z37.0 Single live birth; M45.9 Ankylosing spondylitis of unspecified sites in spine
CPT/HCPCS: 36415; 59025; 59050; 59510; 59514; 85025; 86850; 86900; 86901; 96360; G0379; J0131; J0330; J1170; J1885; J2274; J2405; J2704; J2765; J3010

== ENCOUNTER → 2021-12-29 08:29 | Outpatient (CLI) | payer OTHER, SELFPAY ==
[2021-12-29 18:46] LABS: Add Manual Diff / Slide Review NO; Basophils Absolute Auto 100 /uL (0-100); Basophils Percent Auto 1.1 % (0-2); Eosinophils Absolute Auto 100 /uL (0-450); Eosinophils Percent Auto 1.3 % (2-4); Hematocrit 37.6 % (36-46); Hemoglobin 12.5 g/dL (12.0-16.0); Lymphocytes Absolute Auto 2700 /uL (1100-4500); Lymphocytes Percent Auto 32.1 % (25-40); Mean Corpuscular HGB Conc 33.3 % (30-36); Mean Corpuscular Hemoglobin 28.6 PG (26-34); Mean Corpuscular Volume 85.9 fL (80-100); Monocytes Absolute Auto 600 /uL (0-900); Monocytes Percent Auto 6.7 % (3-14); Neutrophils Absolute Auto 4900 /uL (1500-7000); Neutrophils Percent Auto 58.8 % (50-75); Platelet Count 441 X10^3/uL (150-400); Red Blood Cell Count 4.38 X10^6/uL (4.0-5.2); Red Cell Distribution Width 14.3 % (11.6-14.8); White Blood Cell Count 8.3 X10^3/uL (4.5-11.0)
[2021-12-29 18:57] LABS: Alanine Aminotransferase 10 IU/L (<35); Albumin 4.4 g/dL (3.5-5.0); Albumin Globulin Ratio 1.2 (1.0-2.8); Alkaline Phosphatase 80 U/L (38-126); Aspartate Aminotransferase 21 IU/L (14-36); BUN Creatinine Ratio 18.9 (6-22); Bilirubin Total 0.6 mg/dL (0.2-1.3); Blood Urea Nitrogen 10 mg/dL (7-17); Calcium 9.6 mg/dL (8.4-10.2); Carbon Dioxide 30 mmol/L (22-32); Chloride 101 mmol/L (98-107); Cholesterol 233 mg/dL (140-199); Estimated Glomerular Filt Rate > 60.0 mL/min (>60); Globulin 3.8 g/dL (1.7-4.1); Glucose 95 mg/dL (70-100); HDL Cholesterol 84 mg/dL (40-60); HEMOLYSIS < 15 (0-50); LDL Cholesterol Calculated 123 mg/dL (<100); Potassium 4.2 mmol/L (3.4-5.1); Sodium 135 mmol/L (137-145); Total Protein 8.2 g/dL (6.3-8.2); Triglycerides 132 mg/dL (35-150)
[2021-12-29 19:35] LABS: TSH w/ Reflex to FT4 2.56 uIU/mL (0.47-4.68)
== END ==
PROVIDERS: Family Provider Internal Medicine Rheumatology; PCP Physician Assistant Medical; Visit Provider Physician Assistant
DX: I10 Essential (primary) hypertension (principal)
CPT/HCPCS: 80053; 80061; 84443; 85025

== ENCOUNTER → 2022-03-14 08:35 | Outpatient (CLI) | payer OTHER, SELFPAY ==
[2022-03-14 19:16] LABS: Add Manual Diff / Slide Review NO; Basophils Absolute Auto 100 /uL (0-100); Basophils Percent Auto 0.8 % (0-2); Eosinophils Absolute Auto 100 /uL (0-450); Hematocrit 37.1 % (36-46); Hemoglobin 11.9 g/dL (12.0-16.0); Lymphocytes Absolute Auto 2100 /uL (1100-4500); Lymphocytes Percent Auto 28.6 % (25-40); Mean Corpuscular Hemoglobin 26.6 PG (26-34); Monocytes Absolute Auto 400 /uL (0-900); Monocytes Percent Auto 5.6 % (3-14); Neutrophils Absolute Auto 4800 /uL (1500-7000); Platelet Count 455 X10^3/uL (150-400); Red Blood Cell Count 4.47 X10^6/uL (4.0-5.2); Red Cell Distribution Width 16.3 % (11.6-14.8); White Blood Cell Count 7.5 X10^3/uL (4.5-11.0)
[2022-03-14 19:34] LABS: Alanine Aminotransferase 10 IU/L (<35); Albumin 4.8 g/dL (3.5-5.0); Albumin Globulin Ratio 1.3 (1.0-2.8); Alkaline Phosphatase 81 U/L (38-126); Aspartate Aminotransferase 21 IU/L (14-36); Bilirubin Total 0.4 mg/dL (0.2-1.3); Blood Urea Nitrogen 9 mg/dL (7-17); C-Reactive Protein Quant < 0.5 mg/dL (<1.0); Calcium 9.5 mg/dL (8.4-10.2); Carbon Dioxide 24 mmol/L (22-32); Chloride 103 mmol/L (98-107); Estimated Glomerular Filt Rate > 60 mL/min (>60); Globulin 3.7 g/dL (1.7-4.1); Glucose 90 mg/dL (70-100); HEMOLYSIS < 15 (0-50); Potassium 4.3 mmol/L (3.4-5.1); Sodium 137 mmol/L (137-145); Total Protein 8.5 g/dL (6.3-8.2)
[2022-03-14 20:17] LABS: Erythrocyte Sedimentation Rate 37 MM/HR (0-20)
[2022-03-16 14:11] LABS: QuantiFERON Mitogen Value >10.00 IU/mL (.); QuantiFERON TB Gold Plus Negative (Negative)
== END ==
PROVIDERS: Family Provider Internal Medicine Rheumatology; PCP Physician Assistant Medical; Visit Provider Internal Medicine Rheumatology
DX: M45.9 Ankylosing spondylitis of unspecified sites in spine (principal)
CPT/HCPCS: 80053; 85025; 85651; 86140; 86480

== ENCOUNTER → 2022-09-20 14:50 | Outpatient (CLI) | payer OTHER, SELFPAY | PROVIDERS: Family Provider Internal Medicine Rheumatology; PCP Family Medicine; Visit Provider Physician Assistant | DX: N89.8 Other specified noninflammatory disorders of vagina (principal) | CPT/HCPCS: 87661; 87798; 87801 ==

== ENCOUNTER → 2023-05-23 10:55 | Outpatient (CLI) | payer OTHER, SELFPAY ==
[2023-05-23 20:07] LABS: Add Manual Diff / Slide Review NO; Basophils Absolute Auto 100 /uL (0-100); Eosinophils Absolute Auto 100 /uL (0-450); Hematocrit 37.7 % (36-46); Lymphocytes Absolute Auto 2800 /uL (1100-4500); Lymphocytes Percent Auto 37.4 % (25-40); Mean Corpuscular HGB Conc 31.8 % (30-36); Mean Corpuscular Hemoglobin 26.3 PG (26-34); Mean Corpuscular Volume 82.6 fL (80-100); Monocytes Absolute Auto 500 /uL (0-900); Monocytes Percent Auto 6.2 % (3-14); Neutrophils Absolute Auto 4000 /uL (1500-7000); Neutrophils Percent Auto 54.4 % (50-75); Platelet Count 369 X10^3/uL (150-400); Red Blood Cell Count 4.56 X10^6/uL (4.0-5.2); Red Cell Distribution Width 17.3 % (11.6-14.8); White Blood Cell Count 7.4 X10^3/uL (4.5-11.0)
[2023-05-23 20:18] LABS: Alanine Aminotransferase 22 IU/L (<35); Albumin 4.4 g/dL (3.5-5.0); Albumin Globulin Ratio 1.1 (1.0-2.8); Alkaline Phosphatase 92 U/L (38-126); Aspartate Aminotransferase 81 IU/L (14-36); BUN Creatinine Ratio 15.8 (6-22); Bilirubin Total 0.4 mg/dL (0.2-1.3); Blood Urea Nitrogen 9 mg/dL (7-17); C-Reactive Protein Quant < 0.5 mg/dL (<1.0); Calcium 8.9 mg/dL (8.4-10.2); Carbon Dioxide 24 mmol/L (22-32); Chloride 104 mmol/L (98-107); Estimated Glomerular Filt Rate > 60 mL/min (>60); Glucose 104 mg/dL (70-100); HEMOLYSIS 27 (0-50); Potassium 3.8 mmol/L (3.4-5.1); Sodium 137 mmol/L (137-145); Total Protein 8.4 g/dL (6.3-8.2)
[2023-05-23 20:45] LABS: Erythrocyte Sedimentation Rate 21 MM/HR (0-20)
== END ==
PROVIDERS: Family Provider Internal Medicine Rheumatology; PCP Family Medicine; Visit Provider Internal Medicine Rheumatology
DX: M45.9 Ankylosing spondylitis of unspecified sites in spine (principal)
CPT/HCPCS: 80053; 85025; 85651; 86140

== ENCOUNTER → 2024-02-13 09:24 | Outpatient (CLI) | payer OTHER, SELFPAY ==
[2024-02-13 21:10] LABS: Add Manual Diff / Slide Review NO; Basophils Absolute Auto 100 /uL (0-100); Basophils Percent Auto 1.2 % (0-2); Eosinophils Absolute Auto 100 /uL (0-450); Hematocrit 36.5 % (36-46); Hemoglobin 11.5 g/dL (12.0-16.0); Lymphocytes Absolute Auto 1900 /uL (1100-4500); Lymphocytes Percent Auto 25.9 % (25-40); Mean Corpuscular HGB Conc 31.7 % (30-36); Mean Corpuscular Hemoglobin 25.6 PG (26-34); Mean Corpuscular Volume 80.7 fL (80-100); Monocytes Absolute Auto 400 /uL (0-900); Monocytes Percent Auto 5.5 % (3-14); Neutrophils Absolute Auto 4900 /uL (1500-7000); Neutrophils Percent Auto 66.4 % (50-75); Platelet Count 403 X10^3/uL (150-400); Red Blood Cell Count 4.52 X10^6/uL (4.0-5.2); Red Cell Distribution Width 17.3 % (11.6-14.8); White Blood Cell Count 7.3 X10^3/uL (4.5-11.0)
[2024-02-13 22:01] LABS: Vitamin D 25 Hydroxy (D3) 41.8 ng/mL (30.0-100.0)
[2024-02-13 22:19] LABS: Alanine Aminotransferase 14 IU/L (<35); Albumin 4.3 g/dL (3.5-5.0); Albumin Globulin Ratio 1.1 (1.0-2.8); Alkaline Phosphatase 85 U/L (38-126); Aspartate Aminotransferase 23 IU/L (14-36); BUN Creatinine Ratio 19.6 (6-22); Bilirubin Total 0.6 mg/dL (0.2-1.3); Blood Urea Nitrogen 10 mg/dL (7-17); Calcium 9.4 mg/dL (8.4-10.2); Carbon Dioxide 23 mmol/L (22-32); Chloride 106 mmol/L (98-107); Cholesterol 217 mg/dL (140-199); Estimated Glomerular Filt Rate > 60 mL/min (>60); Globulin 3.8 g/dL (1.7-4.1); Glucose 95 mg/dL (70-100); HEMOLYSIS < 15 (0-50); Potassium 3.8 mmol/L (3.4-5.1); Sodium 137 mmol/L (137-145); Total Protein 8.1 g/dL (6.3-8.2); Triglycerides 127 mg/dL (35-150)
[2024-02-13 22:43] LABS: HDL Cholesterol 79 mg/dL (40-60); LDL Cholesterol Calculated 113 mg/dL (<100)
[2024-02-13 23:05] LABS: TSH w/ Reflex to FT4 0.82 uIU/mL (0.47-4.68)
[2024-02-15 15:02] LABS: Vitamin B12 450 pg/mL (239-931)
== END ==
PROVIDERS: Family Provider Internal Medicine Rheumatology; PCP Family Medicine; Visit Provider Family Medicine
DX: R10.9 Unspecified abdominal pain (principal); I47.29 Other ventricular tachycardia; K50.90 Crohn's disease, unspecified, without complications; D64.9 Anemia, unspecified; I10 Essential (primary) hypertension
CPT/HCPCS: 80053; 80061; 82306; 82607; 84443; 85025

== ENCOUNTER → 2025-03-06 16:51 | Outpatient (CLI) | payer OTHER, SELFPAY | LOC: LAB 16:52 | PROVIDERS: Family Provider Internal Medicine Rheumatology; PCP Family Medicine; Visit Provider Physician Assistant Medical | DX: L03.039 Cellulitis of unspecified toe (principal) | CPT/HCPCS: 87070; 87075; 87077; 87205 ==

== ENCOUNTER → 2025-03-11 10:32 | Outpatient (CLI) | payer OTHER, SELFPAY ==
[2025-03-11 19:44] LABS: Add Manual Diff / Slide Review NO; Basophils Absolute Auto 0 /uL (0-100); Basophils Percent Auto 0.7 % (0-2); Eosinophils Absolute Auto 100 /uL (0-450); Eosinophils Percent Auto 0.8 % (2-4); Hematocrit 42.4 % (36-46); Hemoglobin 14.6 g/dL (12.0-16.0); Lymphocytes Absolute Auto 2100 /uL (1100-4500); Lymphocytes Percent Auto 32.8 % (25-40); Mean Corpuscular HGB Conc 34.4 % (30-36); Mean Corpuscular Hemoglobin 32.8 PG (26-34); Mean Corpuscular Volume 95.5 fL (80-100); Monocytes Absolute Auto 400 /uL (0-900); Monocytes Percent Auto 5.8 % (3-14); Neutrophils Absolute Auto 3900 /uL (1500-7000); Neutrophils Percent Auto 59.9 % (50-75); Platelet Count 313 X10^3/uL (150-400); Red Blood Cell Count 4.44 X10^6/uL (4.0-5.2); Red Cell Distribution Width 13.2 % (11.6-14.8); White Blood Cell Count 6.5 X10^3/uL (4.5-11.0)
[2025-03-11 19:50] LABS: BUN Creatinine Ratio 15.8 (6-22); Blood Urea Nitrogen 9 mg/dL (7-17); Calcium 9.3 mg/dL (8.4-10.2); Carbon Dioxide 22 mmol/L (22-32); Chloride 104 mmol/L (98-107); Cholesterol 224 mg/dL (140-199); Estimated Glomerular Filt Rate > 60 mL/min (>60); Glucose 90 mg/dL (70-99); HDL Cholesterol 84 mg/dL (40-60); HEMOLYSIS < 15 (0-50); LDL Cholesterol Calculated 110 mg/dL (<100); Potassium 4.2 mmol/L (3.4-5.1); Sodium 136 mmol/L (137-145); Triglycerides 150 mg/dL (35-150)
[2025-03-11 20:20] LABS: TSH w/ Reflex to FT4 1.17 uIU/mL (0.47-4.68)
== END ==
PROVIDERS: Family Provider Internal Medicine Rheumatology; PCP Family Medicine; Visit Provider Family Medicine
DX: D64.9 Anemia, unspecified (principal); K50.919 Crohn's disease, unspecified, with unspecified complications; I10 Essential (primary) hypertension; I47.29 Other ventricular tachycardia; I47.10 Supraventricular tachycardia, unspecified
CPT/HCPCS: 80048; 80061; 84443; 85025